=== PATIENT | female | born 1935 | race Two or more races ===

== ENCOUNTER 2018-08-03 12:36 | Emergency (ER) | payer OTHER ==
[2018-08-03 12:46] VITALS: BMI 28.7
[2018-08-03] MEDS ORDERED: KETOROLAC TROMETHAMINE 30 MG/1 ML VIAL IVPUSH ONE (13:49)
--- NOTE | 2018-08-03 13:57 | PDOC ---
History of Present Illness <Carol Ward - Last Filed: 08/03/18 15:22> - General History Source: Patient, Family - History of Present Illness Associated Symptoms: denies: cough, fever/chills, nausea/vomiting, weakness <Pamela LynSari - Last Filed: 08/03/18 16:49> - General Chief Complaint: Wound Stated Complaint: LT FACE SWOLLEN Time Seen by Provider: 08/03/18 13:22 Past History <Carol Wardparishmartin - Last Filed: 08/03/18 15:22> - Past Medical History COPD: No Diabetes: Yes HTN: Yes Hypercholesterolemia: Yes - Suicide/Smoking/Psychosocial Hx Smoking History: Unknown if ever smoked <EboniPamelaJusto - Last Filed: 08/03/18 16:49> - Past Medical History Allergies/Adverse Reactions: Allergies Allergy/AdvReac Type Severity Reaction Status Date / Time No Known Allergies Allergy Verified 08/03/18 12:46 Home Medications: Ambulatory Orders Acetaminophen W/ Codeine #3 [Tylenol # 3 -] 1 tab PO Q4H #12 tablet MDD 6 doses 08/03/18 Amlodipine Besylate [Norvasc -] 5 mg PO DAILY 08/03/18 Clopidogrel Bisulfate [Plavix -] 75 mg PO DAILY 08/03/18 Enalapril Maleate [Vasotec] 20 mg PO DAILY 08/03/18 Furosemide [Lasix -] 40 mg PO DAILY 08/03/18 Isosorbide Mononitrate [Ismo -] 20 mg PO BID@1000,1700 08/03/18 Metformin HCl [Glucophage] 500 mg PO DAILY 08/03/18 Simvastatin [Zocor -] 40 mg PO HS 08/03/18 Review of Systems - Review of Systems Constitutional: No: Chills, Fever, Malaise, Unexplained wgt Loss Respiratory: No: Cough, Shortness of Breath Cardiac (ROS): No: Chest Pain <EboniPamelaJusto - Last Filed: 08/03/18 16:49> *Physical Exam - Vital Signs Last Vital Signs Temp Pulse Resp BP Pulse Ox 99.2 F 96 H 17 122/51 L 94 L 08/03/18 12:40 08/03/18 12:40 08/03/18 12:40 08/03/18 12:40 08/03/18 12:40 <WardCarol Ely - Last Filed: 08/03/18 15:22> - Vital Signs Last Vital Signs Temp Pulse Resp BP Pulse Ox 99.2 F 96 H 17 122/51 L 94 L 08/03/18 12:40 08/03/18 12:40 08/03/18 12:40 08/03/18 12:40 08/03/18 12:40 - Physical Exam General Appearance: Yes: Appropriately Dressed, Mild Distress HEENT: positive: Normal Voice, Other Neck: positive: Supple Respiratory/Chest: positive: Lungs Clear, Normal Breath Sounds. negative: Respiratory Distress Cardiovascular: positive: Regular Rate, S1, S2 Gastrointestinal/Abdominal: positive: Soft. negative: Tender Integumentary: positive: Dry, Warm Neurologic: positive: Fully Oriented, Alert, Normal Mood/Affect <Dedra Lyn - Last Filed: 08/03/18 16:49> ED Treatment Course - LABORATORY CBC & Chemistry Diagram: 08/03/18 14:27 08/03/18 14:27 - ADDITIONAL ORDERS Additional order review: Laboratory Results 08/03/18 14:27 Sodium 142 Potassium 4.9 Chloride 104 Carbon Dioxide 23 Anion Gap 15 BUN 25 H Creatinine 1.1 Creat Clearance w eGFR 47.67 Random Glucose 87 Calcium 8.3 L Total Bilirubin 1.2 H AST 21 ALT 17 Alkaline Phosphatase 71 Total Protein 7.4 Albumin 3.4 08/03/18 14:27 RBC 3.84 MCV 92.8 MCHC 32.7 RDW 15.4 MPV 9.7 Neutrophils % 72.0 Lymphocytes % 13.5 Monocytes % 6.7 Eosinophils % 7.1 H Basophils % 0.7 - Medications Given in the ED: ED Medications Discontinued Medications Generic Name Dose Route Start Last Admin Trade Name Freq PRN Reason Stop Dose Admin Ketorolac Tromethamine 30 mg 08/03/18 13:49 08/03/18 14:40 Toradol Injection - IVPUSH 08/03/18 13:50 30 mg ONCE ONE Administration <Carol Ward - Last Filed: 08/03/18 15:22> - LABORATORY CBC & Chemistry Diagram: 08/03/18 14:27 08/03/18 14:27 - RADIOLOGY Radiology Studies Ordered: Category Date Time Status SOFT TISSUE NECK CT W/O CONTR [CT] Stat CT Scan 08/03/18 13:47 Ordered <Dedra Lyn - Last Filed: 08/03/18 16:49> Medical Decision Making - Medical Decision Making The patient was seen and evaluated in conjunction with midlevel provider under my direct supervision, ancillary studies were reviewed. I agree with the plan as outlined by SID Lyn. HPI, workup/dispo as outlined. VS reviewed, wnl. 08/03/18 15:22 <SylviaCarol Mechemartin - Last Filed: 08/03/18 15:22> - Medical Decision Making 08/03/18 13:51 83-year-old female, fomer smoker (>40 ppd, quit many years ago), HTN, CAD, s/p CVA with L-sided deficit, brought in by family for painful L facial swelling that started yesterday. No dental pain, ear pain, sore throat, [place], body aches, fatigue, malaise, f/c. Seen by Dr العلي yesterday and had neg labs and rapid strep test per family member and told to come to ED for CT scan. Pt reports that she had similar facial swelling but b/l about 1 month ago while still residing in the . States she was seen by her doctor then but dx was unclear. States symptoms resolved on its own. No unexplained weight loss. See exam L facial swelling Parotitis vs salivary gland stone vs abscess vs lymphadenopathy -pain control -labs -CT 08/03/18 16:29 CT read as no definite fluid collection or e/o ductal stone. There is thickening of the L platysma muscle with some associated edema. Also seen is mild prominence of the L parotid gland consistent with acute vs chronic parotitis. Labs unremarkable. Case was discussed with Karlos Carter, referring PMD, who confirms he saw patient in clinic yesterday. States labs/strep were normal and started pt on augmentin. States he gave patient referral form to go directly to radiology for CAT scan and states he did not instruct patient to come to the ED. CT findings discussed with Abby who agrees with discharging with supportive treatment and states patient can follow-up in office. This was discussed with patient and family. Reasons to return to ED discussed <Dedra Lyn - Last Filed: 08/03/18 16:49> *DC/Admit/Observation/Transfer <Carol Ward - Last Filed: 08/03/18 15:22> <Dedra Lyn - Last Filed: 08/03/18 16:49> Diagnosis at time of Disposition: Left facial swelling, Parotitis - Discharge Dispostion Disposition: HOME Condition at time of disposition: Improved - Prescriptions Prescriptions: Acetaminophen W/ Codeine #3 [Tylenol # 3 -] 1 tab PO Q4H #12 tablet MDD 6 doses - Referrals Referrals: Karlos العلي MD [Primary Care Provider] - - Patient Instructions Printed Discharge Instructions: Parotitis Additional Instructions: Singh escner de ari mostr algo de inflamacin en la glndula marcy [place] , que es cathy glndula salival que produce saliva. Trilby generalmente es causado por un virus, maira singh mdico le recet un antibitico que debe rossy segn las indicaciones. Abbie debe rossy medicamentos para el dolor segn las indicaciones. Es importante que leo muchos lquidos, realice grgaras de agua salada y chupe dulces azucarados o con sabor a limn, roosevelt alicia se analiza alannah Leiva aplique compresas tibias en el [place] varias veces al da mayte 10-15 minutos cada vez. Por favor rufina un seguimiento con singh mdico la prxima semana. Volver a la [place] para el empeoramiento de los sntomas. Print Language: BENINESE - Post Discharge Activity
[2018-08-03] MEDS ORDERED: KETOROLAC TROMETHAMINE 30 MG/1 ML VIAL ONE (14:34)
[2018-08-03 14:50] LABS: BASO % 0.7 % (0-2.0); EOS % 7.1 % (0-4.5); HEMATOCRIT 35.7 % (32.4-45.2); HEMOGLOBIN 11.7 GM/dL (10.7-15.3); LYMPH % 13.5 % (8-40); MCH 30.4 pg (25.7-33.7); MCHC 32.7 g/dl (32.0-36.0); MEAN CELL VOLUME 92.8 fl (80-96); MEAN PLT VOLUME 9.7 fl (7.5-11.1); MONO % 6.7 % (3.8-10.2); PLATELET COUNT 196 K/MM3 (134-434); RBC 3.84 M/mm3 (3.60-5.2); RDW 15.4 % (11.6-15.6); WHITE BLOOD COUNT 10.1 K/mm3 (4.0-10.0)
[2018-08-03 15:06] LABS: ALBUMIN 3.4 g/dl (3.4-5.0); ALK PHOS 71 U/L (45-117); ANION GAP 15 MMOL/L (8-16); BILIRUBIN,TOTAL 1.2 mg/dL (0.2-1); BLOOD UREA NITROGEN 25 mg/dL (7-18); CALCIUM 8.3 mg/dL (8.5-10.1); CHLORIDE 104 mmol/L (98-107); CO2 23 mmol/L (21-32); CREATININE 1.1 mg/dL (0.55-1.3); GLUCOSE,RANDOM 87 mg/dL (74-106); POTASSIUM 4.9 mmol/L (3.5-5.1); SGOT/AST 21 U/L (15-37); SGPT/ALT 17 U/L (13-61); SODIUM 142 mmol/L (136-145); TOT PROT 7.4 g/dl (6.4-8.2)
[2018-08-03 16:59] VITALS: BP 122/52; PULSE 70; TEMP 98
== END 2018-08-03 17:02 | disposition home or self-care (01) ==
LOC: JER 12:36
PROC: 3E0333Z Introduction of Anti-inflammatory into Peripheral Vein, Percutaneous Approach (ICD-10-PCS; principal; 2018-08-03)
DX: K11.20 Sialoadenitis, unspecified (principal); I25.10 Atherosclerotic heart disease of native coronary artery without angina pectoris; I10 Essential (primary) hypertension; E78.00 Pure hypercholesterolemia, unspecified; E11.9 Type 2 diabetes mellitus without complications; Z79.84 Long term (current) use of oral hypoglycemic drugs; I69.854 Hemiplegia and hemiparesis following other cerebrovascular disease affecting left non-dominant side; Z87.891 Personal history of nicotine dependence
CPT/HCPCS: 36415; 70490-TC; 71046-TC-FY; 80053; 85025; 96374; 99282-25